=== PATIENT | male | born 1950 | race Caucasian/White ===

== ENCOUNTER 2017-08-21 15:21 | Emergency (ER) | payer MEDICARE, OTHER ==
[~2017-08-21] VITALS: Ht 188 cm; Wt 129.3 kg
[~2017-08-21 15:21] MED LIST: ALBUTEROL2.5 MG/3 M INH; ASPIRIN EC81 MG PO; CEFPODOXIME PR200 MG PO; COUMADIN1 MG PO; COUMADIN3 MG PO; COUMADIN5 MG PO; FENOFIBRATE160 MG PO; FOLIC ACID1 MG PO; HYDROCHLOROTHIA25 MG PO; ISOSORBIDE MONO30 M1 PO; ISOSORBIDE MONO30 MG PO; LASIX40 MG PO; LEVAQUIN500 MG PO; LIPITOR40 MG PO; LISINOPRIL20 MG PO; LOVENOX100 MG SUB-Q; NORCO 5-325 TA1 EACH PO; PLAVIX75 MG PO; POTASSIUM CHLO10 MEQ PO; PROTONIX40 MG PO; SIMVASTATIN80 MG PO; TERBINAFINE15 GM TOP; TRANDATE300 MG PO; VITAMIN D32000 UNIT PO
[2017-08-21] MEDS ORDERED: CARVEDILOL6.25 MG PO (15:39)
[2017-08-21] MEDS ORDERED: FUROSEMIDE40 MG PO (15:39)
[2017-08-21] MEDS ORDERED: POTASSIUM CHLO20 ME1 PO (15:39)
[2017-08-21] MEDS ORDERED: GLIPIZIDE ER2.5 MG PO (15:40)
--- OUTSIDE RECORDS SUMMARY | 2017-08-21 15:44 | XMS | Clinical Summary ---
Demographics + + + | Address | [address] | | | [place] [address] | + + + | Home Phone | | + + + | Preferred Language | Unknown | + + + | Marital Status | | + + + | Oriental Orthodox Affiliation | Unknown | + + + | Race | Unknown | + + + | Ethnic Group | Unknown | + + + Author + + + | Author | [facility] | + + + | Organization | [facility] | + + + | Address | Unknown | + + + | Phone | Unavailable | + + + Support + + +---------+ + | Name | Relationship | Address | Phone | + + +---------+ + | Argelia Baldwin | ECON | Unknown | | + + +---------+ + | Mello Baldwin | ECON | Unknown | | + + +---------+ + | Aleja Christopher | ECON | Unknown | Unavailable | + + +---------+ + | Leandra,Brown | ECON | Unknown | | + + +---------+ + Care Team Providers + +------+ + | Care Processing Assistant Name | Role | Phone | + +------+ + | David Asher MD | PP | | + +------+ + Allergies No Known Allergies Current Medications + + +-------+---------+------+------+-------+ | Prescription | Sig. | Disp. | Refills | Star | End | Statu | | | | | | t | Date | s | | | | | | Date | | | + + +-------+---------+------+------+-------+ | | Take 12.5 mg by | | | | | Activ | | hydrochlorothiazide | mouth daily. | | | | | e | | (HYDRODIURIL) 25 MG | | | | | | | | tablet | | | | | | | + + +-------+---------+------+------+-------+ | isosorbide | Take 30 mg by mouth | | | | | Activ | | mononitrate (IMDUR) | daily. | | | | | e | | 30 MG 24 hr tablet | | | | | | | + + +-------+---------+------+------+-------+ | lisinopril | Take 10 mg by mouth | | | | | Activ | | (PRINIVIL,ZESTRIL) | 2 (two) times daily. | | | | | e | | 20 MG tablet | | | | | | | + + +-------+---------+------+------+-------+ | simvastatin | Take 80 mg by mouth | | | | | Activ | | (ZOCOR) 80 MG tablet | nightly. | | | | | e | + + +-------+---------+------+------+-------+ | labetalol | Take 300 mg by mouth | | | | | Activ | | (NORMODYNE) 300 MG | 2 (two) times | | | | | e | | tablet | daily. | | | | | | + + +-------+---------+------+------+-------+ | Cholecalciferol | Take by mouth. | | | | | Activ | | (VITAMIN D3) 3000 | | | | | | e | | UNITS TABS | | | | | | | + + +-------+---------+------+------+-------+ | furosemide (LASIX) | Take 40 mg by mouth | | | | | Activ | | 40 MG tablet | daily. Two tablets | | | | | e | | | daily. | | | | | | + + +-------+---------+------+------+-------+ | potassium chloride | Take 10 mEq by mouth | | | | | Activ | | (K-DUR) 10 MEQ | 2 (two) times | | | | | e | | tablet | daily. | | | | | | + + +-------+---------+------+------+-------+ | atorvastatin | Take 40 mg by mouth | | | 02/01 | | Activ | | (LIPITOR) 40 MG | daily. | | | 07/21 | | e | | tablet | | | | 15 | | | + + +-------+---------+------+------+-------+ | fenofibrate | Take 160 mg by mouth | | | 01/02 | | Activ | | (TRICOR) 160 MG | daily. | | | 11/20 | | e | | tablet | | | | 15 | | | + + +-------+---------+------+------+-------+ Active Problems + + + | Problem | Noted Date | + + + | Vitamin D deficiency | 12/11/2014 | + + + | Hyperuricemia | 12/11/2014 | + + + | Bilateral edema of lower extremity | 12/11/2014 | + + + | Sepsis(995.91) | 01/26/2014 | + + + | Hyperglycemia | 01/26/2014 | + + + | Bacterial pneumonia, unspecified | 01/25/2014 | + + + | Acute renal failure (HCC) | 01/20/2014 | + + + | Unspecified essential hypertension | 01/20/2014 | + + + | H/O: CVA (cerebrovascular accident) | 01/20/2014 | + + + | TALHA (obstructive sleep apnea) | 01/20/2014 | + + + | Nonspecific abnormal electrocardiogram (ECG) (EKG) | 04/25/2013 | + + + | Other nonspecific abnormal cardiovascular system function study | 04/25/2013 | + + + | Coronary atherosclerosis of [place] coronary artery | 04/25/2013 | + + + Resolved Problems + + + + | Problem | Noted | Resolved | | | Date | Date | + + + + | Fever, unspecified | 01/26/20 | | | | 14 | 4 | + + + + | Confusion | 01/24/20 | | | | 14 | 4 | + + + + | SOB (shortness of breath) | 01/21/20 | | | | 14 | 4 | + + + + Family History + + +------+ + | Medical History | Relation | Name | Comments | + + +------+ + | Diabetes type II | Father | | | + + +------+ + | Cancer | Mother | | Stomach | + + +------+ + + +------+--------+ + | Relation | Name | Status | Comments | + +------+--------+ + | Father | | | | + +------+--------+ + | Mother | | | | + +------+--------+ + Social History + +-------+ +--------+------+ | Tobacco Use | Types | Packs/Day | Years | Date | | | | | Used | | + +-------+ +--------+------+ | Never Smoker | | | | | + +-------+ +--------+------+ + +---+---+---+ | Smokeless Tobacco: | | | | | Never Used | | | | + +---+---+---+ + + +---------+ + | Alcohol Use | Drinks/We | oz/Week | Comments | | | ek | | | + + +---------+ + | Yes | | | Vary rarely | + + +---------+ + + + + | Sex Assigned at | Date Recorded | | | | + + + | Not on file | | + + + Last Filed Vital Signs + + + + | Vital Sign | Reading | Time Taken | + + + + | Blood Pressure | 123/59 | 02/19/2015 10:16 AM PDT | + + + + | Pulse | 63 | 02/19/2015 10:16 AM PDT | + + + + | Temperature | 36.8 C (98.2 F) | 02/19/2015 10:16 AM PDT | + + + + | Respiratory Rate | 18 | 02/08/2014 10:01 AM PDT | + + + + | Oxygen Saturation | 97% | 02/19/2015 10:16 AM PDT | + + + + | Inhaled Oxygen | - | - | | Concentration | | | + + + + | Weight | 133.8 kg (295 lb) | 01/15/2015 9:47 AM PDT | + + + + | Height | 188 cm (6' 2") | 01/15/2015 9:47 AM PDT | + + + + | Body Mass Index | 37.88 | 01/15/2015 9:47 AM PDT | + + + + Plan of Treatment + + + + + | Health Maintenance | Due Date | Last Done | Comments | + + + + + | Vaccine: | | | | | Dtap/Tdap/Td (1 - | 0 | | | | Tdap) | | | | + + + + + | Colon Cancer | | | | | Screening | 1 | | | | (Colonoscopy) | | | | + + + + + | Vaccine: | | | | | Pneumococcal 65+ | 6 | | | | High/Highest Risk (1 | | | | | of 2 - PCV13) | | | | + + + + + | Vaccine: Influenza | | | | | (Season Ended) | 8 | | | + + + + + Results Not on filefrom Last 3 Months Insurance + +--------+ +--------+-------+---------+ | Payer | Benefi | Subscriber | Type | Phone | Address | | | t Plan | ID | | | | | | / | | | | | | | Group | | | | | + +--------+ +--------+-------+---------+ | MA - [employer]MIERC[employer] | MA-FAM | xxxxxxxxxx | Medica | | | | FAMILY | CATY | | re | | | | | CARE | | | | | + +--------+ +--------+-------+---------+ + +--------+ +--------+ + + | Guarantor Name | Accoun | Relation to | Date | Phone | Billing Address | | | t Type | Patient | of | | | | | | | | | | + +--------+ +--------+ + + | JOSHUA BALDWIN | Person | Self [birth year] Home: | [address] | | | al/Fam | | [phone] | [phone] [place] | | | [place] | | | [phone] | [phone] | + +--------+ +--------+ + +
--- OUTSIDE RECORDS SUMMARY | 2017-08-21 15:44 | XMS | Clinical Summary ---
Demographics + + + | Address | [address] | | | [place] [address] | + + + | Home Phone | | + + + | Preferred Language | Unknown | + + + | Marital Status | | + + + | Pentecostalism Affiliation | NON | + + + | Race | White | + + + | Ethnic Group | Not or | + + + Author + + + | Author | [facility] | + + + | Organization | [facility] | + + + | Address | Unknown | + + + | Phone | Unavailable | + + + Support + + +---------+ + | Name | Relationship | Address | Phone | + + +---------+ + | ROSALIND EDGE | ECON | Unknown | | + + +---------+ + Care Team Providers + +------+ + | Care Salesperson Terrazzo Tiles Name | Role | Phone | + +------+ + PP | Unavailable | + +------+ + Source Comments SANGEETA is fully live on both [facility] Ambulatory and [facility] Allergies No Known Allergies Current Medications + + + +---------+------+------+-------+ | Prescription | Sig. | Disp. | Refills | Star | End | Statu | | | | | | t | Date | s | | | | | | Date | | | + + + +---------+------+------+-------+ | aspirin EC 81 mg | Take 1 Tab by mouth | 30 Tab | 2 | 02/0 | | Activ | | Oral Tablet, Delayed | once daily. | | | 3/20 | | e | | Release (E.C.) | | | | 10 | | | + + + +---------+------+------+-------+ | | Take 1 Tab by mouth | 30 Tab | 2 | 02/0 | | Activ | | hydrochlorothiazide | once daily. | | | 3/20 | | e | | 25 mg Oral Tablet | | | | 10 | | | + + + +---------+------+------+-------+ | isosorbide | Take 1 Tab by mouth | 30 Tab | 2 | 02/0 | | Activ | | mononitrate CR 30 mg | once daily. | | | 3/20 | | e | | Oral Tablet | | | | 10 | | | | Sustained Release 24 | | | | | | | | hr | | | | | | | + + + +---------+------+------+-------+ | labetalol 200 mg | Take 3 Tabs by mouth | 180 Tab | 2 | 02/0 | | Activ | | Oral Tablet | two times daily. | | | 3/20 | | e | | | | | | 10 | | | + + + +---------+------+------+-------+ | lisinopril 20 mg | Take 1 Tab by mouth | 60 Each | 2 | 02/0 | | Activ | | Oral Tablet | two times daily. | | | 3/20 | | e | | | | | | 10 | | | + + + +---------+------+------+-------+ | simvastatin 80 mg | Take 1 Tab by mouth | 30 Tab | 2 | 02/0 | | Activ | | Oral Tablet | once daily in the | | | 3/20 | | e | | | evening. | | | 10 | | | + + + +---------+------+------+-------+ Active Problems Not on file Social History + +-------+ +--------+------+ | Tobacco Use | Types | Packs/Day | Years | Date | | | | | Used | | + +-------+ +--------+------+ | Never Smoker | | | | | + +-------+ +--------+------+ + + +---------+ + | Alcohol Use | Drinks/We | oz/Week | Comments | | | ek | | | + + +---------+ + | No | | | | + + +---------+ + + + + | Sex Assigned at | Date Recorded | | | | + + + | Not on file | | + + + Last Filed Vital Signs + + + + | Vital Sign | Reading | Time Taken | + + + + | Blood Pressure | 122/79 | 06/06/2009 11:33 AM PST | + + + + | Pulse | 64 | 06/06/2009 11:33 AM PST | + + + + | Temperature | 36.6 C (97.9 F) | 06/06/2009 11:33 AM PST | + + + + | Respiratory Rate | 16 | 06/06/2009 11:33 AM PST | + + + + | Oxygen Saturation | 94% | 06/06/2009 11:18 AM PST | + + + + | Inhaled Oxygen | - | - | | Concentration | | | + + + + | Weight | 133.8 kg (295 lb) | 06/01/2009 5:09 AM PST | + + + + | Height | 188 cm (6' 2") | 06/04/2009 3:30 PM PST | + + + + | Body Mass Index | - | - | + + + + Plan of Treatment + + + + + | Health Maintenance | Due Date | Last Done | Comments | + + + + + | INFLUENZA VACCINE | | | | | (FLU SHOT) | 8 | | | + + + + + Results Not on filefrom Last 3 Months
--- OUTSIDE RECORDS SUMMARY | 2017-08-21 15:45 | XMS | Clinical Summary ---
Demographics + + + | Address | [address] | | | [place] [address] | + + + | Home Phone | | + + + | Preferred Language | Unknown | + + + | Marital Status | | + + + | Confucianist Affiliation | Unknown | + + + | Race | Unknown | + + + | Ethnic Group | Unknown | + + + Author + + + | Author | [facility] | | | and [place] | + + + | Organization | [facility] | | | and [place] | + + + | Address | Unknown | + + + | Phone | Unavailable | + + + Care Team Providers + +------+ + | Care Advertising Writer Name | Role | Phone | + +------+ + PP | Unavailable | + +------+ + Allergies No Known Allergies Current Medications + + +-------+---------+------+------+-------+ | Prescription | Sig. | Disp. | Refills | Star | End | Statu | | | | | | t | Date | s | | | | | | Date | | | + + +-------+---------+------+------+-------+ | simvastatin | Take 80 mg by mouth | | | 01/02 | | Activ | | (ZOCOR) 80 mg tablet | Daily. | | | 20 | | e | | | | | | 12 | | | + + +-------+---------+------+------+-------+ | labetalol | Take 300 mg by mouth | | | 01/02 | | Activ | | (NORMODYNE) 300 MG | 2 times daily. | | | 420 | | e | | tablet | | | | 12 | | | + + +-------+---------+------+------+-------+ | clopidogrel | Take 75 mg by mouth | | | 01/02 | | Activ | | (PLAVIX) 75 mg | Daily. | | | 08/21 | | e | | tablet | | | | 12 | | | + + +-------+---------+------+------+-------+ | aspirin (ADULT | Take 81 mg by mouth | | | 01/02 | | Activ | | ASPIRIN EC LOW | Daily. | | | 08/21 | | e | | STRENGTH) 81 MG EC | | | | 12 | | | | tablet | | | | | | | + + +-------+---------+------+------+-------+ | lisinopril | Take 20 mg by mouth | | | 01/02 | | Activ | | (PRINIVIL, ZESTRIL) | 2 times daily. | | | 08/21 | | e | | 20 mg tablet | | | | 12 | | | + + +-------+---------+------+------+-------+ | isosorbide | Take 30 mg by mouth | | | 01/02 | | Activ | | dinitrate (ISORDIL) | Daily. | | | 08/21 | | e | | 30 MG tablet | | | | 12 | | | + + +-------+---------+------+------+-------+ | | Take 25 mg by mouth | | | 01/02 | | Activ | | hydrochlorothiazide | Daily. | | | 08/21 | | e | | 25 mg tablet | | | | 12 | | | + + +-------+---------+------+------+-------+ Active Problems Not on file Social History + +-------+ +--------+------+ | Tobacco Use | Types | Packs/Day | Years | Date | | | | | Used | | + +-------+ +--------+------+ | Never Assessed | | | | | + +-------+ +--------+------+ + + + | Sex Assigned at | Date Recorded | | | | + + + | Not on file | | + + + Last Filed Vital Signs + +---------+ + | Vital Sign | Reading | Time Taken | + +---------+ + | Blood Pressure | 140/72 | 11/14/2010 0000 PDT | + +---------+ + | Pulse | - | - | + +---------+ + | Temperature | - | - | + +---------+ + | Respiratory Rate | - | - | + +---------+ + | Oxygen Saturation | - | - | + +---------+ + | Inhaled Oxygen | - | - | | Concentration | | | + +---------+ + | Weight | - | - | + +---------+ + | Height | - | - | + +---------+ + | Body Mass Index | - | - | + +---------+ + Plan of Treatment + + + + + | Health Maintenance | Due Date | Last Done | Comments | + + + + + | Hepatitis C | | | | | Screening | 1 | | | + + + + + | Vaccine: | | | | | Dtap/Tdap/Td (1 - | 0 | | | | Tdap) | | | | + + + + + | BREAST CANCER | | | | | SCREENING (MAMM Q2 | 1 | | | | YEARS 50-74) | | | | + + + + + | COLON CANCER | | | | | SCREENING | 1 | | | | (COLONOSCOPY EVERY | | | | | 10 YEARS 50-75) | | | | + + + + + | Vaccine: Zoster (#1) | | | | | | 1 | | | + + + + + | Vaccine: | | | | | Pneumococcal 65+ | 6 | | | | Low/Medium Risk (1 | | | | | of 2 - PCV13) | | | | + + + + + | Vaccine: Influenza | | | | | (Season Ended) | 8 | | | + + + + + Results Not on filefrom Last 3 Months"
--- OUTSIDE RECORDS SUMMARY | 2017-08-21 15:45 | XMS | Clinical Summary ---
Demographics + + + | Address | [address] | | | [place] [address] | + + + | Home Phone | | + + + | Preferred Language | Unknown | + + + | Marital Status | | + + + | Druze Affiliation | Unknown | + + + | Race | Unknown | + + + | Ethnic Group | Unknown | + + + Author + + + | Author | [facility] | + + + | Organization | [facility] | + + + | Address | [...] Team Providers + +------+ + | Care Locomotive Pipe Fitter Name | Role | Phone | + [...] + + + | Coronary atherosclerosis of [place] coronary artery | 04/25/2013 | + + [...] | [place] | | | [address] | [phone] | + +--------+ +--------+ + +
--- OUTSIDE RECORDS SUMMARY | 2017-08-21 15:45 | XMS | Clinical Summary ---
Demographics + + + | Address | [address] | | | [place] [address] | + + + | Home Phone | | + + + | Preferred Language | Unknown | + + + | Marital Status | | + + + | Quaker Affiliation | Unknown | + + + | Race | Unknown | + + + | Ethnic Group | Unknown | + + + Author + + + | Author | [facility] | | | and [place] | + + + | Organization | [facility] | | | and [place] | + + + | Address | Unknown | + + + | Phone | Unavailable | + + + Care Team Providers + +------+ + | Care Payroll Bookkeeper Name | Role | Phone | + [...]
--- OUTSIDE RECORDS SUMMARY | 2017-08-21 15:45 | XMS | Clinical Summary ---
Demographics + + + | Address | [address] | | | [place] [address] | + + + | Home Phone | | + + + | Preferred Language | Unknown | + + + | Marital Status | | + + + | Scientologist Affiliation | NON | + + + [...] Team Providers + +------+ + | Care Oxide Furnace Tender Name | Role | Phone | + +------+ + PP | Unavailable | + +------+ + Source Comments SANGEETA is fully live on both [facility] Ambulatory and [facility] InPatient[facility] Allergies No Known Allergies Current Medications + [...]
== END 2017-08-21 17:35 | disposition home or self-care (01) ==
LOC: ED 15:21
DX: S09.90XA Unspecified injury of head, initial encounter (principal); Z79.899 Other long term (current) drug therapy; Z79.84 Long term (current) use of oral hypoglycemic drugs; Z79.01 Long term (current) use of anticoagulants; Z86.73 Personal history of transient ischemic attack (TIA), and cerebral infarction without residual deficits; W22.8XXA Striking against or struck by other objects, initial encounter
CPT/HCPCS: 70450; 85610; 99284

== ENCOUNTER 2017-08-30 09:33 | Inpatient (IN) | payer MEDICARE, OTHER ==
[~2017-08-30] VITALS: Ht 188 cm; Wt 140.8 kg
[~2017-08-30 09:33] MED LIST changes: +CARVEDILOL6.25 MG PO; +FUROSEMIDE40 MG PO; +GLIPIZIDE ER2.5 MG PO; +POTASSIUM CHLO20 ME1 PO
[2017-08-30] MEDS ORDERED: ALLOPURINOL300 MG PO (11:01)
[2017-08-30] MEDS ORDERED: FENOFIBRATE160 MG PO (11:02)
--- NOTE | 2017-08-31 06:40 | CONS ---
[facility] [address] [place], [place] [address] Signed DATE OF CONSULTATION: 08/30/2017 REFERRING PHYSICIAN: Dr. Kirt Olivares CHIEF COMPLAINT: Right upper quadrant abdominal pain. HISTORY OF PRESENT ILLNESS: Joshua is a 66-year-old obese diabetic gentleman, who had a stroke. He is to his 2nd and they had moved into [facility] to be together. 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 He also had a CABG x4 number of years ago, but says he has not seen Dr. Eng in quite some time in fact Dr. Eng is now retired. He also has obstructive sleep apnea and significant obesity and what sounds like congestive heart failure. This morning, he was having what sound liked periumbilical pain and could not eat breakfast. The [facility] [place] brought him to the emergency room for evaluation. He was seen in the ER and he on repeat exam, he seemed to be mostly tender in the right upper quadrant. His white count was borderline at 10.7, but his neutrophils are 88. His creatinine is 1.58 and his liver function tests were fine. INR was up at 1.8 from his Coumadin and he has got some extra glucose in his urine. A CT scan was ordered and it shows a 2 cm stone in the gallbladder along with multiple smaller stones. No obvious gallbladder wall thickening. Common bile duct seems unremarkable. He has an umbilical hernia and a right inguinal hernia both containing fat and he has a 25 mm stone is in his urinary bladder. 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 PAST MEDICAL HISTORY: Coronary artery disease, congestive heart failure, hypertension, obesity, diabetes type 2, cerebrovascular accident, and obstructive sleep apnea requiring CPAP. PAST SURGICAL HISTORY: CABG x4 and inguinal hernia repair. SOCIAL HISTORY: He does not smoke or drink. He is and his is at [facility]. He resides at [facility]. He has one son from his first Mello Baldwin at [phone] Kalpesh Ceron is his primary care provider. He prefers the [facility]. He no longer drives. FAMILY HISTORY: Mom had stomach cancer and dad of old age. REVIEW OF SYSTEMS: Electronically Signed By: HEMA YANES MD 08/31/17 0640 PATIENT NAME: JOSHUA BALDWIN CONSULTATION DATE OF : 50 REPORT #: [id number] PHYSICIAN: HEMA YANES MD PCP: MARISABEL CERON PAC REPORT IS CONFIDENTIAL AND NOT TO BE RELEASED WITHOUT AUTHORIZATION [facility] [address] [place] [id number] Signed Tee had 10 systems reviewed. Since I have seen him last he has had a stroke. He answers appropriately, but he is slow to answer. ALLERGIES: Nitrofurantoin. MEDICATIONS: Lisinopril, vitamin D, folate, isosorbide mononitrate, atorvastatin, fenofibrate, Coumadin, Lasix, potassium chloride, carvedilol, glipizide, and allopurinol. PHYSICAL EXAMINATION: VITAL SIGNS: His blood pressure is 125/59, heart rate 78, respiratory rate 24, his temperature is 98.2 he is 95% on room air. He is 6 feet 2 inches at 129 kg. GENERAL: Joshua is a 66-year-old obese gentleman, lying supine in his hospital bed. It is clear he has had a stroke. He answers slowly but generally appropriately. LUNGS: Clear to auscultation bilaterally. HEART: Regular rate and rhythm. ABDOMEN: Obese, but soft. He seems to be tender in the right upper quadrant, it is somewhat laterally corresponding to the area of his gallbladder on the CT scan. LABORATORY DATA: His white blood cell count is 10.7, hemoglobin 15, neutrophils 88, potassium 4.1, BUN 24, creatinine is 1.58, glucose 288. Urinalysis shows some glucose. Lactic acid is 3.0. Total bilirubin 0.5, his AST 27, ALT 25, alkaline phosphatase 70. His albumin is 4.2, lipase 27. His INR is 1.8. RADIOGRAPHIC STUDIES: CT scan of the abdomen and pelvis is reviewed along with the report. He clearly has a 2 cm stone in the gallbladder along with some smaller stones present. The gallbladder does not appear to be particularly thickened. The common bile duct is unremarkable. He has both an umbilical and right inguinal hernia containing fat. He has a 25 mm stone in his urinary bladder. ASSESSMENT AND PLAN: Joshua is a 66-year-old gentleman, who presents with what appears to be a right upper quadrant abdominal pain associated with at least some level of cholecystitis and cholelithiasis. He has rather significant medical issues at this time. He said it has been years since he saw a vault cashier. Consequently, we are going to continue his antibiotics, hydration while his some liquids and his p.o. medications. We will get our internal medicine service to see him. We just checked his EKG and he is in normal sinus rhythm at 75 beats per minute. I think also we will check an echocardiogram in the morning because of his history of congestive heart failure, we will try to get old records from Dr. Eng's new partner Dr. Leon. I have explained all this to Tee. He has expressed understanding and agrees with the above plan. Electronically Signed By: HEMA YANES MD 08/31/17 0640 PATIENT NAME: JOSHUA BALDWIN CONSULTATION DATE OF : 50 REPORT #: [id number] PHYSICIAN: HEMA YANES MD PCP: MARISABEL CERON PAC REPORT IS CONFIDENTIAL AND NOT TO BE RELEASED WITHOUT AUTHORIZATION [address] [address] Signed MD RONNIE Baeza/GRIS /[id number] cc: MD Kalpesh George MD Aimee Rogers, MD Copies: CHELSEA LEON MD, AIMEE MD ~ Electronically Signed By: HEMA YANES MD 08/31/17 0640 PATIENT NAME: JOSHUA BALDWIN CONSULTATION DATE OF : 50 REPORT #: [id number] PHYSICIAN: HEMA YANES MD PCP: MARISABEL CERON PAC REPORT IS CONFIDENTIAL AND NOT TO BE RELEASED WITHOUT AUTHORIZATION
[2017-08-31] MEDS ORDERED: JANTOVEN3 MG PO (12:15)
--- NOTE | 2017-08-31 22:07 | EKG ---
[facility] [address] [facility] [place], [place] [address] Signed Normal sinus rhythm Nonspecific ST and T wave abnormality Abnormal ECG No previous ECGs available Confirmed by GERSON MEDINA MD ([id number]) on 08/31/2017 10:07:40 PM Electronically Signed By: GERSON MEDINA MD 08/31/17 2207 PATIENT NAME: JOSHUA OTOOLE Electrocardiogram DATE OF : 50 PHYSICIAN: GERSON MEDINA MD REPORT #: [id number] REPORT IS CONFIDENTIAL AND NOT TO BE RELEASED WITHOUT AUTHORIZATION
[2017-09-01] MEDS ORDERED: FENOFIBRATE160 MG PO (11:10)
[2017-09-01] MEDS ORDERED: GLIPIZIDE ER2.5 MG PO (11:11)
[2017-09-01] MEDS ORDERED: VITAMIN D31000 UNIT PO (11:13)
--- NOTE | 2017-09-03 07:54 | OR ---
[facility] [address], [place] [address] Signed DATE OF OPERATION: 09/02/2017 SURGEON: Hema Yanes MD PREOPERATIVE DIAGNOSIS: Cmclv-rk-cqwffta cholecystitis cholelithiasis. POSTOPERATIVE DIAGNOSES: 1. Cjmbt-lt-qkueqla cholecystitis cholelithiasis. 2. Small-bowel enterotomy x1. PROCEDURES: 1. Diagnostic laparoscopy. 2. Enterorrhaphy x1. ESTIMATED BLOOD LOSS: None. INDICATIONS: Joshua is a 66-year-old, obese, diabetic gentleman, I have actually known for quite a few years. I actually repaired left inguinal hernia for him a number of years ago. He has also had a stroke and it has really affected his right side. Now, he does much of his activity with his left hand. He had his 2nd a number years ago and they had been living together at [facility]. When her level of care had increased, she had to be transferred out to another extended care facility and he stayed behind [facility]. He was at breakfast a few days ago and he seemed to have periumbilical pain, maybe right upper quadrant abdominal pain and so he was unable to eat his breakfast. The [facility] staff decided to have him brought to our local emergency room for evaluation. His vital signs were fine and his white count was at 10.7 with neutrophils 88. He has some chronic renal insufficiency with creatinine of 1.58. His glucose was up around 288. Interestingly, lactic acid was high at 3.0, but his total bilirubin, AST, ALT, alkaline phosphatase all normal. Albumin normal. Lipase normal. INR was 1.8 on his Coumadin. He therefore received a CT scan of the abdomen and pelvis and he does have a 2 cm gallstone along with multiple other stones in the gallbladder. He looks like he has a tiny umbilical hernia containing fat as well as a small right inguinal hernia contained fat and he also has a stone in his urinary bladder which measures about 25 mm. Given that, I was asked to admit him as a general surgeon on-call. He did receive his Levaquin and Flagyl and I have consulted our Internal Medicine Service. We went back and got some of his old records from my office and then we ordered EKG, which showed normal sinus rhythm and also a followup echocardiogram. By Electronically Signed By: HEMA YANES MD 09/03/17 0754 PATIENT NAME: JOSHUA OTOOLE OPERATIVE REPORT DATE OF : 50 REPORT #: [id number] PHYSICIAN: HEMA YANES MD PCP: MARISABEL CERON PAC REPORT IS CONFIDENTIAL AND NOT TO BE RELEASED WITHOUT AUTHORIZATION [facility] [address], [place] [address] Signed the following morning, neutrophils have dropped to 77, white blood cell count was 9.5, and his lactic acid was down to 1. We were planning on doing his gallbladder surgery, so we have given him a little vitamin K to help bring his INR down a bit more. I talked with Joshua and so did my internal medicine service and he is well aware that he is at increased risk for surgery. He continued to have just low-grade fevers just over a 100, 1 or 2 each day as we had him in the hospital on his Levaquin and Flagyl. We did get a chest x-ray and there was no increase in his pulmonary vascularity, but had increased markings at the right base. We did order an ultrasound of the right upper quadrant and again, he does have multiple stones in the gallbladder wall, little thick at 4.4 mm. There was no pericholecystic fluid and the common bile duct was unremarkable. According to the Radiology report, there was a negative Wheeler sign. Yet when asked Joshua later, he was quite insistent that he was having pain and he was able to point directly to his gallbladder, which is just a little bit more lateral than usual. He was seen by our nurse hydraulic and plumbing installer and of course, he is immediately recognized as high risk, in addition, we are still waiting for the official read on our echocardiogram, so we held his surgery one more day while he was on antibiotics and he seemed to be about the same. The echocardiogram came back and we compared it to his previous echocardiogram, essentially the same with a left ventricular ejection fraction around 65% to 70%. No other major issues. Both my anesthesia providers and myself talked to Joshua about the fact that again he is high risk and we had offered that we could certainly transfer him to a larger hospital where they had more specialty care available to him. I also told Joshua, I would be willing to start laparoscopically, but I was going to be very hesitant to open him with a subcostal incision knowing his medical and physical status. I think his greatest issue would be pulmonary after surgery. We had talked about the location of function of his gallbladder and the findings from his x-rays. He understands the location of function of the gallbladder along with the difference between laparoscopic and open cholecystectomy. There is risk to that surgery including, but not limited to bleeding, infection, scarring, change in contour of the skin, damage to main bile duct, incisional hernias, and another unforeseen comorbidity such as cardiac, renal, pulmonary, and even . He had expressed understanding and over several days had maintained his desire to stay at our #25 bed critical access hospital. PROCEDURE NOTE: Joshua was taken into the operating room and placed in the supine position under general endotracheal tube anesthesia. He was already on preoperative antibiotics and his INR was up 1.5 from his Coumadin. He was then prepped and draped in the usual sterile fashion. We noted that he has a very large round protuberant abdomen. We started with our standard Julia trocar and we found that he has very little fat between the skin in his muscle and we could feel that his abdominal wall was quite thin. I ran my 0 Vicryl suture very shallow through the abdominal wall on both sides and we made our small roger and passed the Julia trocar under direct visualization and we were looking under direct visualization. There is always a little resistance as you go through the peritoneum and Electronically Signed By: HEMA YANES MD 09/03/17 0754 PATIENT NAME: JOSHUA OTOOLE OPERATIVE REPORT DATE OF : 50 REPORT #: [id number] PHYSICIAN: HEMA YANES MD PCP: MARISABEL CERON PAC REPORT IS CONFIDENTIAL AND NOT TO BE RELEASED WITHOUT AUTHORIZATION [facility] [address], [place] [address] Signed we felt that as we went in and then we went ahead and insufflated the abdomen. We could see that he has a very small falciform ligament, yet he has a very thick heavy omentum. His omentum was lying up over the entire right side of his liver, clear up over the dome up to the hemidiaphragm such that we could not see the liver whatsoever. His anatomy is such that his liver extends up on the right side fairly far any and so the diaphragm comes up in over that right lobe of the liver. I do not think it is a true eventration, but it is certainly something we see from time to time. I went ahead and placed a 5 mm subxiphoid trocar site and inserted standard blunt nose grasper and literally could not pull the omentum down off the liver. It was not adherent whatsoever. I could simply move it down a few inches and when I let go, it would immediately retract back up over the dome of the liver. Similar to doing a Harper fundoplication with a change in pressure from the chest to the abdomen when the omentum goes back up into the chest or Harper fundoplication. We obviously had concerns, so I went ahead and placed a 5 mm right subcostal trocar site and inserted a 2nd blunt nose grasper and even with that, we had no success in uncovering the liver whatsoever. We had one area over the omentum, was just a little thin and we could see the gallbladder and it was not adherent to the omentum. It was distended and a little firm, but we never could retract the omentum inferiorly and we felt this was going to be too much of a technical challenge in a surgery for Joshua to proceed. We do have a large fan retractor that we would like to use, but even then I did not feel safer on in that regard. After a short discussion, then I went ahead and terminated the case. We had removed the two 5 mm trocars, let the gas escape and when I removed the Julia trocar, I looked and could see what looked like a bowel in our fascial defect just above the umbilicus. I opened that fascial defect a little bit. We pulled the bowel up and sure enough the two 0 Vicryl sutures had caught the piece of small bowel on either side and Julia had gone through the mesenteric side and out in the abdomen. Consequently, we closed those two areas in two layers with running 3-0 Vicryl suture, then interrupted 3-0 silk Lembert sutures. I could pass tip of my index finger and my thumb through that repair. The bowel was quite viable and we returned that to the abdomen, pushed it off to the side and even with him pharmacologically paralyzes on the , he is heavy enough that he was pushing another loop of small bowel up through the fascial defect. We had to very carefully place one suture at a time with the help of the wide flat area to hold the bowel down and out of the way and we placed all the sutures in ieegdb-nb-[id number] fashion and once we were quite confident that we had not caught any additional bowel, we went ahead and tied all those down and closed the fascia. Local anesthetic was then injected into all three trocar sites. Each trocar site was then irrigated and suctioned out until clear. I closed his skin and dermis with interrupted 3-0 subcuticular Monocryl sutures. After this, dry gauze and tape was applied. We stayed in the room for some time and Joshua was slow to wake up, so we went ahead and left him intubated and took him over to our ICU in stable condition. Our plan is to let the gas wear off. We gave him no narcotics. We gave him IV Tylenol and he should do fine. Once he is awake, we will go ahead and extubate him. Electronically Signed By: HEMA YANES MD 09/03/17 0754 PATIENT NAME: JOSHUA OTOOLE OPERATIVE REPORT DATE OF : 50 REPORT #: [id number] PHYSICIAN: HEMA YANES MD PCP: MARISABEL CERON PAC REPORT IS CONFIDENTIAL AND NOT TO BE RELEASED WITHOUT AUTHORIZATION [facility] [address] [place] [id number] Signed Hema Yanes MD ALB/MODL /[id number] cc: Dr. Kalpesh Yanes MD Copies: HEMA YANES MD ~ Electronically Signed By: HEMA YANES MD 09/03/17 0754 PATIENT NAME: JOSHUA OTOOLE OPERATIVE REPORT DATE OF : 50 REPORT #: [id number] PHYSICIAN: HEMA YANES MD PCP: MARISABEL CERON PAC REPORT IS CONFIDENTIAL AND NOT TO BE RELEASED WITHOUT AUTHORIZATION
--- NOTE | 2017-09-08 07:59 | DS ---
[facility] [address] [place], [place] [address] Signed ADMISSION DATE: 08/30/2017 DISCHARGE DATE: 09/05/2017 FINAL DIAGNOSIS: Bbupn-il-dcjdvbl cholecystitis, cholelithiasis. PROCEDURES: 1. Diagnostic laparoscopy with enterorrhaphy. 2. Echocardiogram. 3. CT scan of abdomen and pelvis. 4. Abdominal ultrasound. HISTORY OF PRESENT ILLNESS: Joshua is a 66-year-old obese, diabetic gentleman, who has been to here previous CABG x4 along with some mild renal insufficiency with a creatinine around 1.5. Joshua has also had a previous stroke and he has some right-sided neglect, although he is able to ambulate with a walker. He has been living at an assisted living setting here in [place] with his . Unfortunately, his 's level of care was increasing and she had to be transferred to an extended care facility. At breakfast, Joshua was having a lot of abdominal pain and unable to eat. His providers brought him to our local emergency room for evaluation. In the emergency room, he seemed to have more right upper quadrant tenderness rather than periumbilical tenderness. His white count was borderline at 10.7 with neutrophils at 88. Interestingly, his lactic acid was up at 3.0. Liver function tests were fine. Amylase fine. INR little up at 1.8 because of his Coumadin. He therefore received a CT scan of abdomen and pelvis and having seemed to be fine except for 2 cm stone in the gallbladder along with multiple smaller stones. The common bile duct was unremarkable. There is no pericholecystic fluid. Although, he does have a 25 mm stone in his urinary bladder. Consequently, I was asked to admit him as a general surgeon on-call. HOSPITAL COURSE: Joshua was admitted as above, started on IV fluids and antibiotics. Because of his significant medical comorbidities, we did have our hospitalist see him in consultation. EKG showed normal sinus rhythm and we also ordered an echocardiogram. After a couple of days that came back and it was same as his echocardiogram from about seven years ago with a left ventricular ejection fraction around 65%. By the next morning, Joshua's lactic acid was back to normal and his white count had returned to normal. However, he insisted he continued to have pain in the right upper quadrant and he was pointing to the area of the gallbladder. We therefore ordered an ultrasound of the right upper quadrant and it did show fatty infiltration of his liver along with a multiple gallstones, which are not mobile. His gallbladder wall was a little thick at 4.4 mm. Electronically Signed By: HEMA YANES MD 09/08/17 0759 PATIENT NAME: JOSHUA OTOOLE DISCHARGE SUMMARY DATE OF : 50 REPORT #: [id number] PHYSICIAN: HEMA YANES MD PCP: MARISABEL CERON PAC REPORT IS CONFIDENTIAL AND NOT TO BE RELEASED WITHOUT AUTHORIZATION [address] [address] Signed There is no pericholecystic fluid and the common bile duct was unremarkable. We had our anesthesia provider see Tee in consultation. Of course, there was some concern given his medical comorbidities, particularly with respect to his pulmonary function. He was a little short of breath just talking in bed. However, Tee remained consistent with his symptoms and he wanted me to proceed with his gallbladder surgery. We talked to him about transfer and he initially he had declined and he wanted me to try here in [place], [place]. I explained to Tee that I would be willing to try laparoscopically, but I do not think doing him open here in [place] without having special surround was going to be a collins choice. He had expressed understanding and wished to proceed. We took him to the operating room on 09/02/2017 for his diagnostic laparoscopy and we found that indeed his abdominal wall was quite distended and very thin, maybe an 8th of an inch. His omentum, however, is very heavy and up over his top of his liver to where we could not even see the liver or the gallbladder. We did our best to pull that omentum down. It was so heavy that it was actually starting to tear, so we did stop knowing that he is on Coumadin. We did get a brief look at the gallbladder out laterally and it is distended and guerita in color and interesting Tee has been able to point directly to the top of his gallbladder each and everyday. We decided for Tee's safety not to proceed with an open procedure and we had removed our trocars and when we did we realized that our Julia trocar gone through a piece of small bowel at the level of the umbilicus. I therefore repaired that in two layers with Vicryl and silk sutures. After this, we closed his fascial defect with interrupted menidv-ac-ecjfz 0 Vicryl sutures and we took Tee to the ICU for a day. He was extubated about an hour after surgery, although we didn't give him any narcotics during the procedure. He was simply given IV Tylenol. He did well and we transferred him down to the regular floor for several days where we advanced his diet a little each day until he was on a soft diet. In the meantime, I spoke to his son, Mello, who happens to be an bucket hooker and who I have met before. Mello came up on the weekend and then we had a long discussion with Tee and his son Mello regarding his current situation. Tee maintained that he is having pain in the right upper quadrant and he maintained his desire to proceed with gallbladder surgery. I explained to Tee I thought it was best he be at a much larger tertiary referral center in that regard. [facility], so we know there is liver surgeons at [place] [facility], so we called and Liver Surgeon was happy to accept Tee in transfer. With plans to maybe do a surgery in a day or two once they had a chance to review his records. I had gone over this with Tee and his son in detail. Of course, I am available here locally when he returns if he needs postop followup. In addition, he told me after discharge he would like to go to [facility] if he could, to be with his . I explained to Tee, he should discuss that with the physicians at [place] while he's in [place]. Consequently, we made arrangements for Tee to travel down to [facility] by ambulance. He and his son had expressed understanding and agreed to above plan. Electronically Signed By: HEMA YANES MD 09/08/17 0759 PATIENT NAME: JOSHUA OTOOLE DISCHARGE SUMMARY DATE OF : 50 REPORT #: [id number] PHYSICIAN: HEMA YANES MD PCP: MARISABEL CERON [facility] REPORT IS CONFIDENTIAL AND NOT TO BE RELEASED WITHOUT AUTHORIZATION [address] [address] Signed Hema Yanes MD ALB/MODL /[id number] cc: MD Marisabel George, JAIME Rashid MD Copies: CHELSEA LEON MD, DANIELLE K PAC ROGERS, AIMEE MD ~ Electronically Signed By: HEMA YANES MD 09/08/17 0759 PATIENT NAME: JOSHUA OTOOLE DISCHARGE SUMMARY DATE OF : 50 REPORT #: [id number] PHYSICIAN: HEMA YANES MD PCP: MARISABEL CERON REPORT IS CONFIDENTIAL AND NOT TO BE RELEASED WITHOUT AUTHORIZATION
== END 2017-09-05 15:18 | disposition short-term general hospital (02) | DRG 421 ==
LOC: ED 09:33 → MS 09:34 → ED 15:02 → MS 15:02 → CCU 09-01 10:57 → MS 09-01 10:58 → CCU 09-02 15:03 → MS 09-03 17:10
PROVIDERS: ADMIT Colon & Rectal Surgery
PROC: 0DQ80ZZ Repair Small Intestine, Open Approach (ICD-10-PCS; 2017-09-02)
PROC: 0WJP4ZZ Inspection of Gastrointestinal Tract, Percutaneous Endoscopic Approach (ICD-10-PCS; principal; 2017-09-02 13:45)
DX: K80.12 Calculus of gallbladder with acute and chronic cholecystitis without obstruction (principal); S36.499A Other injury of unspecified part of small intestine, initial encounter; K91.71 Accidental puncture and laceration of a digestive system organ or structure during a digestive system procedure; J98.11 Atelectasis; I69.951 Hemiplegia and hemiparesis following unspecified cerebrovascular disease affecting right dominant side; I13.0 Hypertensive heart and chronic kidney disease with heart failure and stage 1 through stage 4 chronic kidney disease, or unspecified chronic kidney disease; K76.0 Fatty (change of) liver, not elsewhere classified; R09.02 Hypoxemia; E66.9 Obesity, unspecified; I25.10 Atherosclerotic heart disease of native coronary artery without angina pectoris; G47.33 Obstructive sleep apnea (adult) (pediatric); E78.5 Hyperlipidemia, unspecified; E11.22 Type 2 diabetes mellitus with diabetic chronic kidney disease; E11.65 Type 2 diabetes mellitus with hyperglycemia; N18.3 Chronic kidney disease, stage 3 (moderate); I50.9 Heart failure, unspecified; Y92.234 Operating room of hospital as the place of occurrence of the external cause; Z79.01 Long term (current) use of anticoagulants; Z88.1 Allergy status to other antibiotic agents; Z79.84 Long term (current) use of oral hypoglycemic drugs; Z68.39 Body mass index [BMI] 39.0-39.9, adult; Z95.1 Presence of aortocoronary bypass graft; Z79.899 Other long term (current) drug therapy
CPT/HCPCS: 00840; 31720; 36415; 71045; 71046; 74177; 76705; 80048; 80053; 81001; 83036; 83605; 83690; 83735; 84100; 85025; 85610; 85730; 93005; 93010; 93306; 94002; 94660; 94762; 97116; 97162; J0131; J0330; J0735; J1100; J1170; J1956; J2270; J2405; J2704; J3010; J3430; J3475; J7030; J7120; Q9967